=== PATIENT | male | born 1955 | race Caucasian/White ===

== ENCOUNTER 2016-11-07 05:37 | Day surgery (SDC) | payer OTHER ==
[2016-11-06 12:10] VITALS: BMI 21.5
[~2016-11-07] VITALS: Ht 162.6 cm; Wt 56.0 kg
[2016-11-07] VITALS (12 sets, daily range): BP systolic 121–141; BP diastolic 73–86; PULSE 68–108; RESP 13–19; Ht 162.6 cm; Wt 56.0 kg
[2016-11-07] MEDS ORDERED: BUPIVACAINE 0.25% (MPF) 30 ML INJ ONE (06:49)
[2016-11-07] MEDS ORDERED: MULT-761 PO (07:22)
[2016-11-07] MEDS ORDERED: PROPOFOL 20 ML ONE (07:29)
[2016-11-07] MEDS ORDERED: LIDOCAINE 2% (SDV) 5 ML INJ ONE (07:29)
[2016-11-07] MEDS ORDERED: MEPERIDINE 100 MG INJ ONE (07:29)
--- NOTE | 2016-11-07 07:32 | HPN ---
Date/Time of Note Date/Time of Note DATE: 11/07/16 TIME: 07:31 Interval H&P Admission Note Pt. seen H&P reviewed: No system changes ALLA BROWNLEE MD Nov 07, 2016 07:32
[2016-11-07] MEDS ORDERED: EPHEDrine SULFATE 50 MG/5 ML SYG IV PRN (08:00)
[2016-11-07] MEDS ORDERED: HYDROmorphONE (0.2 MG/ML) 10ML SYG IV PRN ×2 (08:00)
[2016-11-07] MEDS ORDERED: hydrALAzine 20 MG INJ IV PRN (08:00)
[2016-11-07] MEDS ORDERED: LABETALOL HCL 20MG INJ IV PRN (08:00)
[2016-11-07] MEDS ORDERED: FENTAnyl 50 MCG/ML VIAL IV PRN (08:00)
[2016-11-07] MEDS ORDERED: MIDAZOLAM 1 MG/ML 2 ML INJ IV PRN (08:00)
[2016-11-07] MEDS ORDERED: DIPHENHYDRAMINE 50 MG INJ IV PRN (08:00)
[2016-11-07] MEDS ORDERED: morphine (1 MG/ML) 10ML SYRINGE IV PRN ×2 (08:00)
[2016-11-07] MEDS ORDERED: METOCLOPRAMIDE 10 MG INJ IV PRN (08:00)
[2016-11-07] MEDS ORDERED: ONDANSETRON 4 MG INJ IV PRN ×2 (08:00→09:00)
[2016-11-07] MEDS ORDERED: MEPERIDINE 25 MG INJ IV PRN (08:00)
[2016-11-07] MEDS ORDERED: BUPIVACAINE 0.25% (MPF) 30 ML INJ INJ ONE (08:04)
[2016-11-07] MEDS ORDERED: GLYCOPYRROLATE 0.4 MG INJ ONE (08:12)
[2016-11-07] MEDS ORDERED: NEOSTIGMINE 3 MG/3 ML SYRINGE ONE (08:12)
[2016-11-07] MEDS ORDERED: ROCURONIUM 50 MG INJ ONE (08:12)
[2016-11-07] MEDS ORDERED: morphine 2 MG INJ IV PRN (09:00)
[2016-11-07] MEDS ORDERED: OXYCODONE/ACETAMINOPHEN (5/325) TAB PO PRN ×2 (09:00)
[2016-11-07] MEDS ORDERED: CEFAZOLIN 1 GM INJ ONE (09:03)
[2016-11-07] MEDS: FENTAnyl 50 MCG/ML VIAL IV PRN ×2 (09:10→09:15)
--- NOTE | 2016-11-07 10:03 | OPR ---
DATE OF OPERATION: 11/07/2016 PREOPERATIVE DIAGNOSIS: Left inguinal hernia without obstruction. OPERATIONS PERFORMED: 1. Repair with extra-large plug. 2. Left inguinal nerve block. POSTOPERATIVE DIAGNOSIS: Left inguinal hernia without obstruction. SURGEON: Alla River MD ANESTHESIA: General. ANESTHESIOLOGIST: Dr. Gambino OPERATIVE REPORT: After satisfactory general anesthesia was achieved, the lower abdomen was prepped and draped in the usual fashion. A 3 cm transverse suprapubic left groin incision was made and car ried down to the level of the external oblique aponeurosis, which was opened in the direction of its fibers. The cord and nerve were then retracted and preserved. There was no indirect sac. There w as a large blowout of the floor of the canal. This was dissected and reduced. The reduction was ma intained by placement of an extra-large plug secured circumferentially with interrupted 3-0 Vicryl s uture to a healthy fascia. Next, the flat portion of the mesh was cut and fashioned to fit in the f tao of the canal as an overlay. It was anchored at the pubic tubercle with 2-0 Novafil, laterally to inguinal ligament with interrupted 2-0 Novafil, and medially to conjoined tendon with interrupted 2-0 Novafil. The mesh distal to the cord was reconstituted with a single suture of 2-0 Novafil cre ating a new internal ring of appropriate size. The cord and nerve were placed beneath the external oblique which was closed with a running 3-0 Vicryl suture. Next, a left inguinal nerve block was pe rformed. 10 mL of 0.25% plain Marcaine were injected into the fascia 1 cm medial and inferior to th e left anterior iliac spine. Ten more mL of local anesthetic were injected directly into the wound. Gama's fascia was closed with interrupted 3-0 Vicryl and skin closed with running 4-0 subcuticul ar Vicryl. Operative blood loss less than 5 mL. Sponge and needle counts reported as correct x2. The patient tolerated the procedure well and without incident or complication. Dictated By: ALLA SMART/NTS Conf#: [id number] DID#: [id number] CC: VIMAL BILLS MD;*EndCC*
== END 2016-11-07 10:05 | disposition home or self-care (01) ==
LOC: SDS 05:37
PROVIDERS: ATTEND Surgery
DX: K40.90 Unilateral inguinal hernia, without obstruction or gangrene, not specified as recurrent (principal)
CPT/HCPCS: 49505; C1781; J0690; J2175; J2405; J2710; J3010; Z7512; Z7610

== ENCOUNTER 2018-05-20 16:02 | Inpatient (IN) | END 2018-05-22 20:30 | disposition home health service (06) | DRG 502 ==